=== PATIENT | female | born 1940 | race Caucasian/White ===

== ENCOUNTER 2022-08-03 15:49 | Inpatient (IN) | payer OTHER ==
[2022-08-03] MEDS ORDERED: ACETAMINOPHEN 1000 MG/100 ML BAG IVPB ONE (16:56)
[2022-08-03 17:23] LABS: EPI CELLS 27 /uL (0-25.1); HYALINE CASTS 10 /uL (0-3.1); PH,URINE 5.5 (5.0-8.0); URINE APPEARANCE CLOUDY; URINE BACTERIA 6382 /uL (0-1359); URINE BILIRUBIN NEGATIVE (NEGATIVE); URINE COLOR YELLOW; URINE GLUCOSE (UA) NEGATIVE (NEGATIVE); URINE KETONE NEGATIVE (NEGATIVE); URINE LEUK ESTERASE 2+ (NEGATIVE); URINE NITRITE NEGATIVE (NEGATIVE); URINE PROTEIN NEGATIVE (NEGATIVE); URINE RBC 132 /uL (0-23.9); URINE WBC 577 /uL (0-25.8)
[2022-08-03 17:31] LABS: BASO % 1.3 % (0-2.0); HEMATOCRIT 42.3 % (32.4-45.2); HEMOGLOBIN 14.4 GM/dL (10.7-15.3); LYMPH % 19.6 % (8-40); MCH 32.9 pg (25.7-33.7); MCHC 34.1 g/dl (32.0-36.0); MEAN CELL VOLUME 96.2 fl (80-96); MONO % 7.5 % (3.8-10.2); NEUT % 70.6 % (42.8-82.8); PLATELET COUNT 260 10^3/uL (134-434); RBC 4.39 M/mm3 (3.60-5.2); RDW 15.2 % (11.6-15.6); WHITE BLOOD COUNT 16.6 K/mm3 (4.0-10.0)
[2022-08-03] MEDS ORDERED: CEFTRIAXONE 1,000 MG in DEXTROSE 5%-WATER - 50 ML IVPB ONE ×2 (17:49→18:33)
[2022-08-03 17:51] LABS: POTASSIUM 4.7 mmol/L (3.5-5.1)
[2022-08-03 17:53] LABS: CALCIUM 9.2 mg/dL (8.5-10.1)
[2022-08-03 17:54] LABS: ALBUMIN 2.9 g/dl (3.4-5.0)
[2022-08-03 17:57] LABS: CREATININE 0.8 mg/dL (0.55-1.3)
[2022-08-03 17:59] LABS: BILIRUBIN,TOTAL 0.5 mg/dL (0.2-1); TOT PROT 6.6 g/dl (6.4-8.2)
[2022-08-03] MEDS ORDERED: PIPERACILLIN/TAZOB 4.5 GM 4.5 GM in DEXTROSE 5%-WATER 100 ML IVPB ONE (18:15)
[2022-08-03] MEDS ORDERED: CEFTRIAXONE 1 GM/50 ML BAG ONE (18:17)
[2022-08-03] MEDS ORDERED: VANCOMYCIN/WATER FOR INJ (PEG) 1,000 MG/200 ML BAG IVPB ONE (19:35)
[2022-08-03] MEDS ORDERED: PIPERACILLIN/TAZOB 4.5 GM 4.5 GM/100 ML BAG IVPB ONE (19:35)
[2022-08-03] MEDS: VANCOMYCIN 1 GM in D5W (PRE-DOCKED) 1,000 MG/250 ML (RESTRICTED TO ID ONLY IVPB ONE ×2 (20:35→21:00)
[2022-08-03] MEDS: INSULIN SLIDING SCALE (NOVOLOG) 1 VIAL SQ SCH (22:27)
[2022-08-04] MEDS: MELATONIN 5 MG TABLETS PO PRN (01:04)
[2022-08-04] MEDS: ACETAMINOPHEN 325 MG TABLET (FP) PO PRN (05:38)
[2022-08-04] MEDS: INSULIN SLIDING SCALE (NOVOLOG) 1 VIAL SQ SCH ×4 (06:10→21:52)
[2022-08-04] MEDS ORDERED: BACLOFEN 10 MG TABLET (FP) PO PRN (07:48)
[2022-08-04] MEDS ORDERED: BISACODYL 10 MG SUPP.RECT PR PRN (07:53)
[2022-08-04] MEDS ORDERED: SODIUM PHOSPHATE/NA BIPHOS 133 ML ENEMA RC PRN (07:55)
[2022-08-04] MEDS ORDERED: MAG HYDROX/AL HYDROX/SIMETH 30 ML UNIT-DOSE CUP PO PRN (07:56)
[2022-08-04] MEDS: ALBUTEROL SO4 2.5/IPRATROPIUM 0.5 INH SOL 3 ML VIAL.NEB. NEB SCH ×4 (08:20→20:30)
[2022-08-04] MEDS ORDERED: PIPERACILLIN/TAZOB 3.375 GM 3.375 GM in DEXTROSE 5%-WATER - 50 ML IVPB SCH (09:00)
[2022-08-04] MEDS: METOPROLOL TARTRATE 50 MG TABLET (FP) PO SCH ×2 (09:23→22:02)
[2022-08-04] MEDS: NIFEdipine E.R. 30 MG TABLET PO SCH (09:23)
[2022-08-04] MEDS: PANTOPRAZOLE 40 MG TABLET PO SCH (09:23)
[2022-08-04] MEDS: POLYETHYLENE GLYCOL (HEALTHYLAX) 3350 17 GM PACKET PO SCH ×2 (09:23→21:51)
[2022-08-04 09:35] LABS: BASO % 0.7 % (0-2.0); HEMATOCRIT 40.9 % (32.4-45.2); HEMOGLOBIN 14.1 GM/dL (10.7-15.3); LYMPH % 20.6 % (8-40); MCHC 34.4 g/dl (32.0-36.0); MEAN CELL VOLUME 95.9 fl (80-96); MEAN PLT VOLUME 8.2 fl (7.5-11.1); MONO % 6.9 % (3.8-10.2); NEUT % 69.8 % (42.8-82.8); PLATELET COUNT 239 10^3/uL (134-434); RBC 4.27 M/mm3 (3.60-5.2); RDW 14.8 % (11.6-15.6); WHITE BLOOD COUNT 11.6 K/mm3 (4.0-10.0)
[2022-08-04 09:38] LABS: INR 1.37 (0.83-1.09); PROTHROMBIN TIME (PATIENT) 15.8 SEC (9.7-13.0)
[2022-08-04 09:53] LABS: POTASSIUM 3.4 mmol/L (3.5-5.1)
[2022-08-04 10:00] LABS: BLOOD UREA NITROGEN 22.6 mg/dL (7-18)
[2022-08-04] MEDS ORDERED: VANCOMYCIN 1 GM/200 ML PREMIX BAG (RESTRICTED TO ID ONLY) IVPB SCH (10:00)
[2022-08-04] MEDS ORDERED: VANCOMYCIN 1 GM in D5W (PRE-DOCKED) 1,000 MG/250 ML (RESTRICTED TO ID ONLY IVPB SCH (10:00)
[2022-08-04 10:01] LABS: CREATININE 0.9 mg/dL (0.55-1.3)
[2022-08-04 10:02] LABS: CALCIUM 9.5 mg/dL (8.5-10.1); MAGNESIUM 2.1 mg/dL (1.8-2.4)
[2022-08-04] MEDS: TORSEMIDE 20 MG TABLET (FP) PO SCH (10:21)
[2022-08-04] MEDS: FLUTICASONE/UMECLIDIN/VILANTER(100-62.5-25 TRELEGY ELLIPTA) INAHLER IH SCH (10:21)
[2022-08-04] MEDS: CEFTRIAXONE 1 GM in DEXTROSE 5%-WATER - 50 ML IVPB SCH (14:27)
[2022-08-04 15:13] VITALS: BMI 46.0
[2022-08-04] MEDS: FAMOTIDINE 20 MG TABLET PO SCH (21:52)
[2022-08-04] MEDS: SENNOSIDES 8.6MG TABLET (FP) PO SCH (21:52)
[2022-08-05] MEDS: INSULIN SLIDING SCALE (NOVOLOG) 1 VIAL SQ SCH ×4 (06:16→21:24)
[2022-08-05] MEDS ORDERED: LEVOTHYROXINE NA 125 MCG TABLET (FP) PO SCH (07:00)
[2022-08-05] MEDS: ALBUTEROL SO4 2.5/IPRATROPIUM 0.5 INH SOL 3 ML VIAL.NEB. NEB SCH ×4 (07:55→20:15)
[2022-08-05] MEDS: METOPROLOL TARTRATE 50 MG TABLET (FP) PO SCH ×2 (10:34→21:15)
[2022-08-05] MEDS: NIFEdipine E.R. 30 MG TABLET PO SCH (10:34)
[2022-08-05] MEDS: POLYETHYLENE GLYCOL (HEALTHYLAX) 3350 17 GM PACKET PO SCH ×2 (10:34→21:17)
[2022-08-05] MEDS: CEFTRIAXONE 1 GM in DEXTROSE 5%-WATER - 50 ML IVPB SCH (10:34)
[2022-08-05] MEDS: PANTOPRAZOLE 40 MG TABLET PO SCH (10:35)
[2022-08-05] MEDS: ACETAMINOPHEN 325 MG TABLET (FP) PO PRN ×2 (10:35→21:18)
[2022-08-05] MEDS: TORSEMIDE 20 MG TABLET (FP) PO SCH (11:09)
[2022-08-05] MEDS: FLUTICASONE/UMECLIDIN/VILANTER(100-62.5-25 TRELEGY ELLIPTA) INAHLER IH SCH (11:09)
[2022-08-05] MEDS: POTASSIUM CHLORIDE ORAL LIQUID 20 MEQ/15 ML PO SCH (12:46)
[2022-08-05] MEDS: MELATONIN 5 MG TABLETS PO PRN (21:17)
[2022-08-05] MEDS: FAMOTIDINE 20 MG TABLET PO SCH (21:17)
[2022-08-05] MEDS: SENNOSIDES 8.6MG TABLET (FP) PO SCH (21:17)
[2022-08-06] MEDS: LEVOTHYROXINE 112 MCG, LEVOTHYROXINE 25 MCG PO SCH (06:03)
[2022-08-06] MEDS: INSULIN SLIDING SCALE (NOVOLOG) 1 VIAL SQ SCH ×4 (06:03→21:03)
[2022-08-06] MEDS ORDERED: LEVOTHYROXINE NA 125 MCG TABLET (FP) PO SCH (07:00)
[2022-08-06] MEDS: ALBUTEROL SO4 2.5/IPRATROPIUM 0.5 INH SOL 3 ML VIAL.NEB. NEB SCH ×4 (08:25→21:31)
[2022-08-06] MEDS: FLUTICASONE/UMECLIDIN/VILANTER(100-62.5-25 TRELEGY ELLIPTA) INAHLER IH SCH (09:46)
[2022-08-06] MEDS: POLYETHYLENE GLYCOL (HEALTHYLAX) 3350 17 GM PACKET PO SCH ×2 (09:54→21:03)
[2022-08-06] MEDS: TORSEMIDE 20 MG TABLET (FP) PO SCH (09:54)
[2022-08-06] MEDS: METOPROLOL TARTRATE 50 MG TABLET (FP) PO SCH ×2 (09:54→21:02)
[2022-08-06] MEDS: POTASSIUM CHLORIDE ORAL LIQUID 20 MEQ/15 ML PO SCH (09:55)
[2022-08-06] MEDS: CEFTRIAXONE 1 GM in DEXTROSE 5%-WATER - 50 ML IVPB SCH (09:56)
[2022-08-06] MEDS: PANTOPRAZOLE 40 MG TABLET PO SCH (09:56)
[2022-08-06] MEDS: NIFEdipine E.R. 30 MG TABLET PO SCH (09:56)
[2022-08-06] MEDS: ACETAMINOPHEN 325 MG TABLET (FP) PO PRN (12:50)
[2022-08-06] MEDS: FAMOTIDINE 20 MG TABLET PO SCH (21:03)
[2022-08-06] MEDS: SENNOSIDES 8.6MG TABLET (FP) PO SCH (21:03)
[2022-08-07] MEDS: INSULIN SLIDING SCALE (NOVOLOG) 1 VIAL SQ SCH ×4 (06:02→21:49)
[2022-08-07] MEDS: LEVOTHYROXINE 112 MCG, LEVOTHYROXINE 25 MCG PO SCH (06:10)
[2022-08-07] MEDS: ALBUTEROL SO4 2.5/IPRATROPIUM 0.5 INH SOL 3 ML VIAL.NEB. NEB SCH ×4 (07:45→20:05)
[2022-08-07] MEDS: CEFTRIAXONE 1 GM in DEXTROSE 5%-WATER - 50 ML IVPB SCH (09:46)
[2022-08-07] MEDS: POLYETHYLENE GLYCOL (HEALTHYLAX) 3350 17 GM PACKET PO SCH ×3 (09:46→21:50)
[2022-08-07] MEDS: PANTOPRAZOLE 40 MG TABLET PO SCH (09:48)
[2022-08-07] MEDS: FLUTICASONE/UMECLIDIN/VILANTER(100-62.5-25 TRELEGY ELLIPTA) INAHLER IH SCH (09:55)
[2022-08-07] MEDS: NIFEdipine E.R. 30 MG TABLET PO SCH (10:20)
[2022-08-07] MEDS: TORSEMIDE 20 MG TABLET (FP) PO SCH (10:20)
[2022-08-07 10:46] LABS: BASO % 0.5 % (0-2.0); EOS % 2.6 % (0-4.5); HEMATOCRIT 35.2 % (32.4-45.2); HEMOGLOBIN 11.9 GM/dL (10.7-15.3); LYMPH % 24.3 % (8-40); MCH 32.8 pg (25.7-33.7); MCHC 33.7 g/dl (32.0-36.0); MEAN CELL VOLUME 97.3 fl (80-96); MEAN PLT VOLUME 8.3 fl (7.5-11.1); MONO % 9.9 % (3.8-10.2); NEUT % 62.7 % (42.8-82.8); PLATELET COUNT 212 10^3/uL (134-434); RBC 3.62 M/mm3 (3.60-5.2); RDW 14.8 % (11.6-15.6)
[2022-08-07 11:01] LABS: POTASSIUM 3.5 mmol/L (3.5-5.1)
[2022-08-07 11:04] LABS: BLOOD UREA NITROGEN 17.9 mg/dL (7-18); CALCIUM 8.5 mg/dL (8.5-10.1)
[2022-08-07 11:08] LABS: CREATININE 0.7 mg/dL (0.55-1.3)
[2022-08-07 11:09] LABS: BILIRUBIN,TOTAL 0.5 mg/dL (0.2-1); TOT PROT 5.4 g/dl (6.4-8.2)
[2022-08-07 11:12] LABS: ALBUMIN 2.3 g/dl (3.4-5.0)
[2022-08-07] MEDS: METOPROLOL TARTRATE 50 MG TABLET (FP) PO SCH ×2 (11:30→21:49)
[2022-08-07] MEDS: POTASSIUM CHLORIDE ORAL LIQUID 20 MEQ/15 ML PO SCH ×2 (12:09→12:11)
[2022-08-07] MEDS ORDERED: ONDANSETRON 4 MG/2 ML VIAL IVPUSH PRN (13:52)
[2022-08-07] MEDS: ACETAMINOPHEN 325 MG TABLET (FP) PO PRN (15:26)
[2022-08-07 16:47] VITALS: RESP 18
[2022-08-07] MEDS ORDERED: ARTIFICIAL TEARS (POLYVINYL ALCOHOL) OPTH DROPS OU PRN (17:48)
[2022-08-07] MEDS: FAMOTIDINE 20 MG TABLET PO SCH (21:49)
[2022-08-07] MEDS: SENNOSIDES 8.6MG TABLET (FP) PO SCH (21:50)
[2022-08-08] MEDS: LEVOTHYROXINE 112 MCG, LEVOTHYROXINE 25 MCG PO SCH (06:16)
[2022-08-08] MEDS: INSULIN SLIDING SCALE (NOVOLOG) 1 VIAL SQ SCH ×2 (06:17→12:45)
[2022-08-08] MEDS: ALBUTEROL SO4 2.5/IPRATROPIUM 0.5 INH SOL 3 ML VIAL.NEB. NEB SCH ×3 (08:49→15:26)
[2022-08-08 09:30] VITALS: BP 109/52; PULSE 55; TEMP 97.9
[2022-08-08] MEDS: NIFEdipine E.R. 30 MG TABLET PO SCH ×2 (10:03→10:37)
[2022-08-08] MEDS: PANTOPRAZOLE 40 MG TABLET PO SCH (10:03)
[2022-08-08] MEDS: TORSEMIDE 20 MG TABLET (FP) PO SCH (10:03)
[2022-08-08] MEDS: POTASSIUM CHLORIDE ORAL LIQUID 20 MEQ/15 ML PO SCH ×2 (10:03→10:36)
[2022-08-08] MEDS: METOPROLOL TARTRATE 50 MG TABLET (FP) PO SCH ×2 (10:03→10:36)
[2022-08-08] MEDS: POLYETHYLENE GLYCOL (HEALTHYLAX) 3350 17 GM PACKET PO SCH ×2 (10:03→10:36)
[2022-08-08] MEDS: CEFTRIAXONE 1 GM in DEXTROSE 5%-WATER - 50 ML IVPB SCH (10:04)
[2022-08-08] MEDS: FLUTICASONE/UMECLIDIN/VILANTER(100-62.5-25 TRELEGY ELLIPTA) INAHLER IH SCH (10:04)
== END 2022-08-08 15:43 | DRG 194 ==
LOC: JER 15:49 → JERBED 21:00 → J5S 22:52 → OBSVTOIN 08-04 14:12
PROVIDERS: ADMIT Internal Medicine; ATTEND Internal Medicine
DX: J18.9 Pneumonia, unspecified organism (principal); J96.12 Chronic respiratory failure with hypercapnia; N39.0 Urinary tract infection, site not specified; Z68.42 Body mass index [BMI] 45.0-49.9, adult; N95.0 Postmenopausal bleeding; I10 Essential (primary) hypertension; J44.9 Chronic obstructive pulmonary disease, unspecified; E11.9 Type 2 diabetes mellitus without complications; E03.9 Hypothyroidism, unspecified; D72.829 Elevated white blood cell count, unspecified; J45.909 Unspecified asthma, uncomplicated; E66.01 Morbid (severe) obesity due to excess calories; B96.20 Unspecified Escherichia coli [E. coli] as the cause of diseases classified elsewhere; Z85.3 Personal history of malignant neoplasm of breast
CPT/HCPCS: 0241U-QW; 36415; 71045-TC-FY; 76830-TC; 80048; 80053; 81003; 82962; 83735; 84100; 84443; 85025; 85610; 85730; 87086; 87186; 87899; 93005; 93010; 94640; 97116-GP; 97162-GP; 99285-25; C9803-CS; G0378; U0003; U0005